=== PATIENT | female | born 1995 | race African-American/Black ===

== ENCOUNTER 2018-05-11 13:54 | Emergency (ER) | payer MEDICAID ==
[~2018-05-11] VITALS: Ht 154.9 cm; Wt 67.0 kg
[~2018-05-11 13:54] MED LIST: ALBUTEROL; IBUP-777
[2018-05-11 16:26] VITALS: BP 131/74
== END 2018-05-11 16:48 | disposition left against medical advice (07) ==
LOC: ER 16:45
DX: Z53.21 Procedure and treatment not carried out due to patient leaving prior to being seen by health care provider (principal)

== ENCOUNTER 2019-10-29 16:15 | Emergency (ER) | payer MEDICAID ==
[~2019-10-29] VITALS: Ht 165.1 cm; Wt 89.0 kg
[2019-10-29] MEDS ORDERED: METRONIDAZOLE 500MG TABLET PO ONE (20:45)
[2019-10-29] MEDS ORDERED: FLUCONAZOLE 150MG TABLET PO ONE (20:45)
[2019-10-29] MEDS ORDERED: AZITHROMYCIN 500 MG TABLET PO ONE (20:45)
[2019-10-29] MEDS ORDERED: CEFTRIAXONE SODIUM 250 MG/VIAL IM ONE (20:45)
[2019-10-29 21:49] LABS: CLARITY URINE CLOUDY (CLEAR); COLOR URINE YELLOW (YELLOW); KETONES URINE NEGATIVE (NEGATIVE); LEUKOCYTE ESTERASE URINE 3+ (NEGATIVE); NITRITE URINE NEGATIVE (NEGATIVE); OCCULT BLOOD URINE TRACE (NEGATIVE); PH URINE 6.5 (4.5-8.0); PROTEIN URINE 1+ (NEGATIVE); SPECIFIC GRAVITY URINE 1.032 (1.005-1.030); UROBILINOGEN URINE 0.2 E.U./dL (0.2-1.0)
[2019-10-29 21:56] LABS: HCG SCREEN NEGATIVE
[2019-10-30 00:04] VITALS: BP 134/69
[2019-11-01 14:09] LABS: NEISSERIA GONORRHOEAE NAA Negative (Negative)
== END 2019-10-30 00:06 | disposition home or self-care (01) ==
LOC: ER 16:15
DX: B37.3 Candidiasis of vulva and vagina (principal); N76.0 Acute vaginitis; B96.89 Other specified bacterial agents as the cause of diseases classified elsewhere; N39.0 Urinary tract infection, site not specified; D25.9 Leiomyoma of uterus, unspecified; R03.0 Elevated blood-pressure reading, without diagnosis of hypertension
CPT/HCPCS: 76830; 76856; 81003; 81025; 84703; 87491; 87591; 96372; 99284; J0696